=== PATIENT | male | born 1940 | race American Indian/Alaskan Native ===

== ENCOUNTER 2017-09-26 20:03 | Emergency (ER) | payer MEDICARE, OTHER ==
[2017-09-26] MEDS ORDERED: Sodium Chloride 0.9% 10 ML Syringe FLUSH PRN (20:12)
--- NOTE | 2017-09-26 20:23 | EDM.PDOC ---
ED HPI GENERAL MEDICAL PROBLEM - General Chief Complaint: Respiratory Problem Stated Complaint: AMBULANCE Time Seen by Provider: 09/26/17 20:39 Source of Information: Reports: Patient History Limitations: Reports: No Limitations - History of Present Illness INITIAL COMMENTS - FREE TEXT/NARRATIVE: the patient comes emergency department today from home by ambulance with complaints of shortness of breath fever cough and abdominal pain. The history taking from this patient is rather limited as he does not understand his past medical history nor does he give much information about his going on currently. From what I can get he does have a history of liver failure cirrhosis and ascites. He has had a cough and congestion over the past couple of days. Suddenly this afternoon his abdomen became even more distended hard firm and his bellybutton became quite swollen. He had fever and chills and shaking riders at home. Rest of the review of systems is unable to be obtained. Abdominal Pain Score (Numeric/FACES): 8 - Related Data Allergies Allergy/AdvReac Type Severity Reaction Status Date / Time No Known Allergies Allergy Verified 09/26/17 21:11 ED ROS GENERAL - Review of Systems Review Of Systems: Unable To Obtain ED EXAM, GENERAL - Physical Exam Exam: See Below Free Text/Narrative:: this is a patient who appears in mild respiratory distress answers questions in 4-5 word sentences. His abdomen is extremely large rounded and almost firm. He has a umbilical hernia that is not bowel filled but fluid-filled. General Appearance: Alert, WD/WN, Mild Distress, Cachetic Ears: Normal External Exam Nose: Normal Inspection Throat/Mouth: Normal Inspection, Normal Lips Head: Atraumatic, Normocephalic Neck: Normal Inspection, Supple Respiratory/Chest: Respiratory Distress (mild), Decreased Breath Sounds ( bilaterally more on the left than the right.), Rhonchi (left), Wheezing ( bilaterally). No: Crackles Cardiovascular: Regular Rate, Rhythm, Tachycardia GI/Abdominal: Distended (profoundly distended and rounded), Guarding, Tender, Abnormal Bowel Sounds (decreased), Hernia (hernia surrounding the umbilicus that is fluid-filled.) (Male) Exam: Deferred Rectal (Males) Exam: Deferred Back Exam: Normal Inspection, Full Range of Motion Extremities: Normal Inspection, Slow Capillary Refill Neurological: Alert, Oriented Psychiatric: Anxious Skin Exam: Warm, Dry, Intact, Normal Color EKG INTERPRETATION EKG Date: 09/26/17 Time: 20:11 Rhythm: Other (tachy) Rate (Beats/Min): 135 [place]: Normal P-Wave: Present QRS: Normal ST-T: Normal QT: Normal Course - Vital Signs Last Recorded V/S: Last Vital Signs Temp 38.1 C 09/26/17 21:05 Pulse 127 H 09/26/17 21:00 Resp 16 09/26/17 21:00 BP 108/49 L 09/26/17 21:00 Pulse Ox 95 09/26/17 21:00 - Orders/Labs/Meds Orders: Active Orders 24 hr Category Date Time Status EKG 12 Lead [EKG Documentation Completion] [RC] URGENT Care 09/26/17 20:12 Active Peripheral IV Care [RC] . DIRECTED Care 09/26/17 20:13 Active RT Aerosol Therapy [RC] ASDIRECTED Care 09/26/17 20:57 Active Chest 2V [CR] Urgent Exams 09/26/17 20:12 Stop Req CULTURE BLOOD [BC] Stat Lab 09/26/17 20:20 Received CULTURE BLOOD [BC] Stat Lab 09/26/17 20:25 Received Blood Culture x2 Reflex Set [OM.PC] Stat Oth 09/26/17 20:12 Ordered Peripheral IV Insertion Adult [OM.PC] Stat Oth 09/26/17 20:12 Ordered Labs: Laboratory Tests 09/26/17 09/26/17 09/26/17 Range/Units 20:12 20:20 20:20 WBC 31.2 H* (5.0-10.0) 10^3/uL RBC 2.98 L (4.6-6.2) 10^6/uL Hgb 9.8 L (14.0-18.0) g/dL Hct 29.8 L (40.0-54.0) % MCV 100.0 (80-100) fL MCH 32.9 (27.0-34.0) pg MCHC 32.9 L (33.0-35.0) g/dL Plt Count 190 (150-450) 10^3/uL Neut % (Auto) 89.9 H (42.2-75.2) % Lymph % (Auto) 3.7 L (20.5-50.1) % [place] % (Auto) 6.3 (2-8) % Eos % (Auto) 0.0 L (1.0-3.0) % Baso % (Auto) 0.1 (0.0-1.0) % Add Manual Diff Yes Neutrophils % (Manual) 88 H (42-75) % Band Neutrophils % 2 % Lymphocytes % (Manual) 5 L (20-50) % Monocytes % (Manual) 5 (2-8) % VBG pH 7.38 (7.31-7.41) VBG pCO2 29 L (41-51) mmHg VBG pO2 39 (35-42) mmHg VBG HCO3 17 L (19-25) mmol/l VBG O2 Saturation 68.4 (60-80) % VBG Base Excess -6.6 L ((-2)-(+3)) mmol/l O2 Delivery Device Nasal cannula Oxygen Flow Rate 1 Sodium 135 (135-145) mmol/L Potassium 4.2 (3.6-5.0) mmol/L Chloride 107 (101-111) mmol/L Carbon Dioxide 17.0 L (21.0-31.0) mmol/L Anion Gap 15.2 BUN 25 H (7-18) mg/dL Creatinine 1.5 H (0.6-1.3) mg/dL Est Cr Clr Drug Dosing 37.33 mL/min Estimated GFR (MDRD) 45 BUN/Creatinine Ratio 16.66 Glucose 94 (74-105) mg/dL Lactic Acid (0.5-2.2) mmol/L Calcium 8.0 L (8.4-10.2) mg/dl Total Bilirubin 3.4 H (0.2-1.0) mg/dL AST 38 (10-42) IU/L ALT 15 (10-60) IU/L Alkaline Phosphatase 90 (42-121) IU/L Troponin I 0.05 H* (0.00-0.02) ng/ml C-Reactive Protein (0.0-1.3) mg/dL Total Protein 6.9 (6.7-8.2) g/dl Albumin 2.7 L (3.2-5.5) g/dl Globulin 4.2 Albumin/Globulin Ratio 0.64 09/26/17 09/26/17 Range/Units 20:20 20:20 WBC (5.0-10.0) 10^3/uL RBC (4.6-6.2) 10^6/uL Hgb (14.0-18.0) g/dL Hct (40.0-54.0) % MCV (80-100) fL MCH (27.0-34.0) pg MCHC (33.0-35.0) g/dL Plt Count (150-450) 10^3/uL Neut % (Auto) (42.2-75.2) % Lymph % (Auto) (20.5-50.1) % [place] % (Auto) (2-8) % Eos % (Auto) (1.0-3.0) % Baso % (Auto) (0.0-1.0) % Add Manual Diff Neutrophils % (Manual) (42-75) % Band Neutrophils % % Lymphocytes % (Manual) (20-50) % Monocytes % (Manual) (2-8) % VBG pH (7.31-7.41) VBG pCO2 (41-51) mmHg VBG pO2 (35-42) mmHg VBG HCO3 (19-25) mmol/l VBG O2 Saturation (60-80) % VBG Base Excess ((-2)-(+3)) mmol/l O2 Delivery Device Oxygen Flow Rate Sodium (135-145) mmol/L Potassium (3.6-5.0) mmol/L Chloride (101-111) mmol/L Carbon Dioxide (21.0-31.0) mmol/L Anion Gap BUN (7-18) mg/dL Creatinine (0.6-1.3) mg/dL Est Cr Clr Drug Dosing mL/min Estimated GFR (MDRD) BUN/Creatinine Ratio Glucose (74-105) mg/dL Lactic Acid 3.6 H (0.5-2.2) mmol/L Calcium (8.4-10.2) mg/dl Total Bilirubin (0.2-1.0) mg/dL AST (10-42) IU/L ALT (10-60) IU/L Alkaline Phosphatase (42-121) IU/L Troponin I (0.00-0.02) ng/ml C-Reactive Protein 12.2 H (0.0-1.3) mg/dL Total Protein (6.7-8.2) g/dl Albumin (3.2-5.5) g/dl Globulin Albumin/Globulin Ratio Meds: Medications Discontinued Medications Generic Name Dose Route Start Last Admin Trade Name Lorena PRN Reason Stop Dose Admin Acetaminophen 1,000 mg 09/26/17 20:57 09/26/17 21:05 Tylenol Extra Strength PO 09/26/17 20:58 1,000 mg ONETIME ONE Administration Albuterol/Ipratropium 3 ml 09/26/17 20:57 09/26/17 21:14 Duoneb 3.0-0.5 Mg/3 Ml NEB 09/26/17 20:58 3 ml ONETIME ONE Administration Ceftriaxone Sodium 2 gm 09/26/17 20:25 09/26/17 20:55 Rocephin IVPUSH 09/26/17 20:26 2 gm ONETIME ONE Administration Sodium Chloride 1,000 mls @ 500 mls/hr 09/26/17 20:26 09/26/17 20:53 Normal Saline IV 09/26/17 22:25 500 mls/hr .BOLUS ONE Administration Sodium Chloride 10 ml 09/26/17 20:12 Saline Flush FLUSH ASDIRECTED PRN Keep Vein Open - Radiology Interpretation Free Text/Narrative:: possible asymmetric pulmonary edema versus multifocal pneumonia. Nodular masslike opacities left lung could represent component of edema pneumonia versus malignancy. cT abdomen and pelvis per radiology. Moderate size hiatal hernia. Gastroesophageal varices. Liver cirrhosis. Nonobstructing nephrolithiasis right kidney. Thickening of the right: Large intra-abdominal and pelvic ascites. Incomplete urinary bladder distention with prominent wall. - Re-Assessments/Exams Free Text/Narrative Re-Assessment/Exam: 09/27/17 03:35 the patient upon arrival is somewhat dyspneic and is VBGs are unremarkable. his hypoxia improved and resolved with oxygen as well as nebulizers. Blood cultures are pending. Fluid bolus initiated with improvement of blood pressure in the 1 teens systolically. I'm concerned for spontaneous bacterial peritonitis due to the rather distended firm very tender abdomen. 2 g Rocephin IV piggyback. Chest x-ray shows a left-sided pneumonia. This patient clearly has sepsis without septic shock at this time.Called and spoke with Dr. Ayala at [facility] History of present illness ER course were relayed to him. His questions are answered. He accepted the patient in transfer with no new orders. Departure - Departure Time of Disposition: 21:45 Disposition: DC/Tfer to [facility] 02 Clinical Impression: Sepsis Qualifiers: Sepsis type: sepsis due to unspecified organism Qualified Code(s): A41.9 - Sepsis, unspecified organism Pneumonia Qualifiers: Pneumonia type: due to unspecified organism Laterality: left Lung location: lower lobe of lung Qualified Code(s): J18.1 - Lobar pneumonia, unspecified organism - Discharge Information Forms: ED Department Discharge ED Communication - Discussed Case With (1) Discussed Case With (1): Admitting Provider (Spoke with Dr. Ayala at [facility] with concerns of Sepsis from left pneumonia and possible SBPeritonitis. HPI ER COURSE findings and concerns were relayed to him. His questions were answered and he accepted the patient in transfer at this time.) - My Orders Last 24 Hours: My Active Orders 09/26/17 20:12 EKG 12 Lead [EKG Documentation Completion] [RC] URGENT Chest 2V [CR] Urgent Blood Culture x2 Reflex Set [OM.PC] Stat Peripheral IV Insertion Adult [OM.PC] Stat 09/26/17 20:13 Peripheral IV Care [RC] . DIRECTED 09/26/17 20:20 CULTURE BLOOD [BC] Stat 09/26/17 20:25 CULTURE BLOOD [BC] Stat 09/26/17 20:57 RT Aerosol Therapy [RC] ASDIRECTED - Assessment/Plan Last 24 Hours: My Active Orders 09/26/17 20:12 EKG 12 Lead [EKG Documentation Completion] [RC] URGENT Chest 2V [CR] Urgent Blood Culture x2 Reflex Set [OM.PC] Stat Peripheral IV Insertion Adult [OM.PC] Stat 09/26/17 20:13 Peripheral IV Care [RC] . DIRECTED 09/26/17 20:20 CULTURE BLOOD [BC] Stat 09/26/17 20:25 CULTURE BLOOD [BC] Stat 09/26/17 20:57 RT Aerosol Therapy [RC] ASDIRECTED Assessment:: sepsis without the presence of septic shock either from spontaneous bacterial peritonitis or left-sided pneumonia. Hypoxia left-sided pneumonia. Impressively large abdominal and pelvis ascites with a umbilical hernia Fluid. Chronic liver failure with cirrhosis and ascites. Plan: Transfer to [facility] Dr. Ayala for further care and management.
[2017-09-26] MEDS ORDERED: cefTRIAXone 2 GM Vial IVPUSH ONE (20:25)
[2017-09-26] MEDS ORDERED: Sodium Chloride 0.9% 1,000 ML IV ONE (20:26)
[2017-09-26 20:27] LABS: BASE EXCESS VENOUS -6.6 mmol/l ((-2)-(+3)); BICARBONATE,VENOUS 17 mmol/l (19-25); O2 DELIVERY DEVICE NASAL CANNULA; O2 SATURATION VENOUS 68.4 % (60-80); PCO2 VENOUS 29 mmHg (41-51); PH,VENOUS 7.38 (7.31-7.41); PO2 VENOUS 39 mmHg (35-42)
[2017-09-26 20:29] LABS: O2 FLOW RATE 1
[2017-09-26 20:55] LABS: ANION GAP 15.2
[2017-09-26] MEDS ORDERED: Albuterol/Ipratropium 3.0-0.5 MG/3 ML Neb Soln NEB ONE (20:57)
[2017-09-26] MEDS ORDERED: Acetaminophen 500 MG Tab PO ONE (20:57)
[2017-09-27] MEDS ORDERED: Iopamidol 612 MG/ML 75 ML Bottle IVPUSH ONE (04:27)
--- NOTE | 2017-09-27 17:52 | EKG ---
09/26/2017 - GRICEL WESLEY - TIME: 2011 hours. FINDINGS: EKG shows sinus tachycardia. 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 Nonspecific T-wave abnormalities. [facility] /[id number]
== END 2017-09-26 21:46 ==
LOC: DL.ED 20:03
DX: A41.9 Sepsis, unspecified organism (principal); J18.9 Pneumonia, unspecified organism; K72.10 Chronic hepatic failure without coma; K70.31 Alcoholic cirrhosis of liver with ascites
CPT/HCPCS: 36415; 71045; 74177; 80053; 82803; 83605; 84484; 85025; 86140; 87040; 93005; 93010; 96360; 99285; A9270; J0696; J7030; Q9967; 99284; J7620-GY